=== PATIENT | male | born 1960 | race Caucasian/White ===

== ENCOUNTER 2016-10-19 15:46 | Inpatient (IN) | payer OTHER ==
[~2016-10-19] VITALS: Ht 198.1 cm; Wt 141.0 kg
--- NOTE | ~2016-10-19 | OR ---
PATIENT'S NAME: DENNY ZIEGLER [facility] AGE: 56 Y [address] ROOM: [place] [address] LOCATION: GPCU ADMIT DATE: 10/19/2016 OR/Procedure Report DISCHARGE DATE: 10/21/2016 FAMILY PHYSICIAN: PHYSICIAN, NO ATTENDING PHYSICIAN: Gaurav Gandhi SURGEON: Woody Lopez DO FLOOR TRADER: DATE OF PROCEDURE: 10/21/2016 PREOPERATIVE DIAGNOSIS: Dual-chamber pacemaker generator at approximately 40 days past ROWENA. POSTOPERATIVE DIAGNOSIS: Dual-chamber pacemaker generator at approximately 40 days past ROWENA. PROCEDURE: Removal and exchange of dual-chamber pacemaker generator. BRIEF HISTORY: Mr. Ziegler is a 56-year-old white male, who in 2006 had his dual-chamber pacemaker placed. Unfortunately, he has not been quite compliant with his followup and presented to the hospital with near syncopal episodes and questionable ventricular tachycardia. His pacemaker was interrogated and found to be approximately 40 days past its ROWENA point. He has been brought to the operative suite today for replacement of his generator. Informed consent has been obtained. His previous incision was marked with surgical marker and then sterilely prepped and draped in the usual fashion. After appropriate IV sedation was achieved, 1% lidocaine was used to infiltrate the incision. The incision was then opened. Leads and generator were removed from the pocket. The old generator which was a Medtronic model ADDR01, serial #[id number], was removed and the new generator which is the [employer] ESSENTIO MRI, model L111, serial #[id number], was connected to the leads without difficulty. The leads were interrogated and found to be in excellent condition, and he was paced DDDR with a lower rate limit of 60, upper maximal tracking rate of 130. The incision was then closed in a layered fashion with 2-0 Vicryl and 4-0 Monocryl. He tolerated the procedure well and was transferred to the recovery area in stable condition. DO DENISE MOFFETT/yuril /[id number] d: 10/21/162008 t: 10/22/16 1044, OPERATIVE SUMMARY
--- NOTE | ~2016-10-19 | HP ---
PATIENT'S NAME: [facility] AGE: 56 Y [address] ROOM: [place] [address] LOCATION: GPCU ADMIT DATE: 10/19/2016 History & Physical DISCHARGE DATE: 10/21/2016 FAMILY PHYSICIAN: PHYSICIAN, NO ATTENDING PHYSICIAN: Gaurav Gandhi DATE OF SERVICE: CHIEF COMPLAINT: Syncopal episode. HISTORY OF PRESENT ILLNESS: A 56-year-old gentleman with no other significant past medical history, had a permanent pacemaker placed 10 years ago. Had multiple episodes of lightheadedness and presyncope without any associated aura, changes in the vision, or headache. He denied of any chest pain, any shortness of breath, any headache, any trouble with the eyes, any abdominal pain, any constipation, any diarrhea, or any leg swelling. He denied any orthopnea or PND as well. REVIEW OF SYSTEMS: All other systems reviewed and were negative except what is mentioned in the HPI. PAST MEDICAL HISTORY: Status post permanent pacemaker. PERSONAL HISTORY: Never a smoker. No alcohol or drug abuse. FAMILY HISTORY: Significant for coronary artery disease in father. MEDICATIONS: Please see MAR. PHYSICAL EXAMINATION: VITAL SIGNS: Vitals in the emergency department were blood pressure 132/64, pulse rate 72, temperature afebrile, respiratory rate 16. HEAD: Atraumatic, normocephalic. EYES: Nonicteric. No pallor. Oropharynx: Dry mucous membranes. CARDIOVASCULAR: S1 and S2. No murmur or gallops or rubs. RESPIRATORY: Clear to auscultation bilaterally. ABDOMEN: Soft, nontender, nondistended. Bowel sounds present. EXTREMITIES: No clubbing, cyanosis, or edema. PATIENT'S NAME: [facility] AGE: 56 Y [address] ROOM: [address] [address] LOCATION: GPCU ADMIT DATE: 10/19/2016 History & Physical DISCHARGE DATE: 10/21/2016 FAMILY PHYSICIAN: PHYSICIAN, NO ATTENDING PHYSICIAN: Gaurav Gandhi NEUROLOGIC: Cranial nerves II through XII intact. No motor or sensory deficit. SKIN: Warm and dry. LABORATORY DATA: Lab on the admission were sodium 143, potassium 4.6, chloride 107, bicarb of 28, glucose 117, BUN of 12, creatinine 1. ASSESSMENT: Presyncope/lightheadedness. PLAN: We are going to obtain a CT of the head. We are going to perform pacemaker interrogation to see if there are any arrhythmias. We will make a Cardiology consultation. Further plan will depend on the patient's course in the hospital. MD DA ACOSTA/ashlee /[id number] D: T: [id number] HISTORY & PHYSICAL
--- NOTE | ~2016-10-19 | ER ---
PATIENT'S NAME: DIX [facility] AGE: 56 Y [address] ROOM: [place] [address] LOCATION: [facility] ADMIT DATE: 10/19/2016 ER/Outpatient Report DISCHARGE DATE: FAMILY PHYSICIAN: PHYSICIAN, NO ATTENDING PHYSICIAN: Viral Epps HISTORY OF PRESENT ILLNESS: This patient is a 56-year-old male, who presented to the Emergency Room with lightheadedness and episodes where he just did not feel very well. He initially saw Dr. Epps. See Dr. Epps's dictation in regard to the chief complaint, history of the present illness, past medical history, physical examination, laboratory, x- rays, and EKG studies. LABORATORY DATA AND DIAGNOSTIC STUDIES: All of his lab was normal. His EKG was normal. His chest x-ray was normal. He did have a run of ventricular tachycardia that was not caught on the monitor here in the Emergency Department. RECOMMENDATIONS: We did plan to interrogate his pacemaker, but the pacemaker machine set up technician is in [place], and will be back early tomorrow morning. We will go ahead and admit the patient to the hospital for monitoring and observation and treatment as needed. We will interrogate the pacemaker tomorrow morning. I did discuss this with the patient, and he understands. Discussed the patient with Dr. Fabian, the hospitalist, who will admit the patient to the hospital. IMPRESSION: 1. Transient run of ventricular tachycardia. History of intermittent lightheadedness over the past few days and not feeling well. 2. Hypertension. 3. Dyslipidemia. PLAN: The patient will be admitted to the hospital for further evaluation and treatment, monitoring, and interrogation of pacemaker. PATIENT'S NAME: DIXDENNY [facility] AGE: 56 Y [address] ROOM: [place] [address] LOCATION: [facility] ADMIT DATE: 10/19/2016 ER/Outpatient Report DISCHARGE DATE: FAMILY PHYSICIAN: PHYSICIAN, NO ATTENDING PHYSICIAN: Viral Epps MD TREV MCGRAW/modl /[id number] d: 10/19/16 2352 t: 10/20/16 1825, OUTPATIENT REPORT
--- NOTE | ~2016-10-19 | DS ---
PATIENT'S NAME: DENNY ZIEGLER [facility] AGE: 56 Y [address] ROOM: [place] [address] LOCATION: GPCU ADMIT DATE: 10/19/2016 Discharge Summary DISCHARGE DATE: 10/21/2016 FAMILY PHYSICIAN: PHYSICIAN, NO ATTENDING PHYSICIAN: Gaurav Gandhi PRINCIPAL DIAGNOSIS: Syncope. SECONDARY DIAGNOSES: 1. Sick sinus syndrome status post pacemaker. End of battery life status post generator exchange on 10/21/2016 on the day of discharge. 2. Morbid obesity. 3. Hypertension. HOSPITAL COURSE: A 56-year-old gentleman with a past medical history of hypertension, sick sinus syndrome status post pacemaker; who was admitted to the hospital due to recurrent syncopes. A CAT scan in the hospital was done which was negative. EKG was done, which was normal sinus rhythm without any acute changes. Pacer interrogation was done which actually showed end of life of pacer battery. Cardiothoracic Surgery consultation was obtained. The patient was taken to the OR for generator exchange which was done on 10/21/2016 and went uneventfully. Cardiology was also involved and approved of his discharge today. DISCHARGE MEDICATION: Include: 1. Metoprolol 50 mg p.o. every night at bedtime. 2. Pravastatin 20 mg p.o. every night. 3. [place] 5/325 p.o. q.6 hours for pain, 1-week supply. ACTIVITY: No heavy lifting on the left side. HEMODYNAMICS ON DISCHARGE: Stable. FOLLOWUP: Followup with Cardiology. MD AD ACOSTA/ashlee /[id number] d: 10/22/1608 t: 10/23/16 1526, DISCHARGE SUMMARY
--- NOTE | ~2016-10-19 | ER ---
PATIENT'S NAME: DENNY ZIEGLER [facility] AGE: 56 Y [address] ROOM: [place] [address] LOCATION: GPCU ADMIT DATE: 10/19/2016 ER/Outpatient Report DISCHARGE DATE: FAMILY PHYSICIAN: PHYSICIAN, NO ATTENDING PHYSICIAN: KAMERON CLAYTON TIME OF ARRIVAL: 15:46. TIME OF EVALUATION: 16:55. CHIEF COMPLAINT: The patient is a 56-year-old male, who presented to the Emergency Department today with a chief complaint of feeling like he is going to pass out. HISTORY OF PRESENT ILLNESS: The patient is a 56-year-old male, who presented to the Emergency Department today with a chief complaint of near syncope. He reports that it started two days prior to arrival. He has had episodes where he feels like he is going to pass out. He has never actually passed out. He denies any pain, 0/10 in severity at this time. He denies any chest pain. No shortness of breath. No cough. No nausea or vomiting. He does report that he had some abdominal pain yesterday, but has not had any since. He denies any fevers. He does report that he had two episodes of diarrhea or loose stool. He denies any other associated symptoms at this time. PAST MEDICAL HISTORY: 1. Dyslipidemia. 2. Hypertension. 3. Bradycardia with episodes of near syncope in the past. PAST SURGICAL HISTORY: Pacemaker. SOCIAL HISTORY: The patient denies any tobacco, alcohol, or illicit drug use. ALLERGIES: NO KNOWN DRUG ALLERGIES. MEDICATIONS: Please see list. PATIENT'S NAME: DENNY ZIEGLER [facility] AGE: 56 Y [address] ROOM: [address] [address] LOCATION: GPCU ADMIT DATE: 10/19/2016 ER/Outpatient Report DISCHARGE DATE: FAMILY PHYSICIAN: PHYSICIAN, NO ATTENDING PHYSICIAN: KAMERON CLAYTON PRIMARY CARE DOCTOR: None. He used to see Nayan Hackett MD prior to [facility]. He has not seen one since. RESAW TAILER: [facility]. REVIEW OF SYSTEMS: All systems were reviewed by myself and are negative with the exception of those discussed in history of present illness and past medical history. PHYSICAL EXAMINATION: VITAL SIGNS: Weight is 141 kg. Blood pressure was 146/99, pulse was 94, respiratory rate was 16, temperature was 98.0, and oxygen saturation was 96% on room air. GENERAL: The patient is a 56-year-old male, who appears stated age. Well developed and well nourished, in no acute distress. HEENT: Head: Normocephalic and atraumatic. Eyes: Pupils were equal, round, and reactive to light. Mucous membranes are moist. NECK: Supple. There is no nuchal rigidity. No jugular venous distention. CARDIOVASCULAR: Regular rate and rhythm. No murmurs, rubs, or gallops. LUNGS: Clear to auscultation bilaterally. No wheezes, rales, or rhonchi. ABDOMEN: Soft, nontender, and nondistended. No rebound, rigidity, or guarding. MUSCULOSKELETAL: The patient moves all four extremities with 5/5 muscle strength. SKIN: Warm and dry. There are no rashes or lesions noted. LABORATORY DATA AND DIAGNOSTIC STUDIES: Labs and x-rays are obtained. EKG is obtained, and is interpreted by myself. It showed sinus rhythm with a rate of 87. Normal axis. Normal interval. No ST elevation or ST depression or T-wave inversions. Complete blood count is normal. Comprehensive metabolic panel is normal. Liver function test is normal. Cardiac enzymes are normal. Coags are normal. PATIENT'S NAME: DENNY ZIEGLER [facility] AGE: 56 Y [address] ROOM: [place] [address] [facility] ADMIT DATE: 10/19/2016 ER/Outpatient Report DISCHARGE DATE: FAMILY PHYSICIAN: PHYSICIAN, NO ATTENDING PHYSICIAN: KAMERON CLAYTON ProBNP is normal. Magnesium is normal. D-dimer is less than 0.19. Chest x-ray shows no acute process as interpreted by myself. IMPRESSION: 1. Near syncope. 2. Questionable non-sustained ventricular tachycardia. 3. Initial visit. EMERGENCY DEPARTMENT COURSE: The patient was brought back to the Examination Room. Seen and evaluated by myself. Upon arrival back to the room, the patient did have an episode of near syncope. The nurse does report that he had a 12-beat run of ventricular tachycardia on the monitor when he had this episode of near syncope. However, this was not captured on the monitor, and was not visualized by myself. The patient was placed on the pads for potential defibrillation as needed. Laboratory analysis and imaging are obtained as described above. EKG is unremarkable. Laboratory analysis is unremarkable. I have discussed results with the patient. We are attempting to get the patient's pacemaker interrogated. I have discussed the results with Dr. Dubose at the shift change. He will follow up on the pacemaker interrogation. Please see his dictation. DISPOSITION: Per Dr. Dubose. SUMEET GUNN DO KJDeena/modl /[id number] d: 10/20/16701 t: 10/21/16 0755, OUTPATIENT REPORT
--- NOTE | ~2016-10-19 | ECHO ---
Transthoracic Echocardiography Report (TTE) Demographics Patient Name DENNY ZIEGLER Date of Study 10/20/2016 Patient Number [id number] Visit Number [id number] Date of 1960 Room Number G6314 Accession Number [id number] Gender Male Age 56 year(s) Referring Hiram Humphrey Civil Engineer [facility] Physician MD Darci Ramos Physician Interpreting Aranza Christianson Box Car Checker Physician Supervising Ordering Physician Darci Hebert APRN, MD/MLP Nurse Stress Guest Specialist Conclusions Contractility Score Summary Normal Left Ventricular contractility was noted. Summary Technically difficult exam. The estimated left ventricular ejection fraction is 60%. Mild concentric left ventricular hypertrophy. No significant valvular abnormalities. Mildly dilated right ventricle. Device lead noted in the right atrium and ventricle. Procedure Type of Study TTE procedure:2D Echocardiogram, M-Mode, Doppler , Color Doppler. Procedure Date Date: 10/20/2016 Start: 10:43 AM Study Location: Inpatient Portable Technical Quality: Fair due to body habitus. Indications:Lightheaded and Dizziness. Appropriate Use Criteria: 9 Patient Status: Routine HR: 75 bpm BP: 135/80 mmHg M-Mode/2D Measurements LV Diastolic Dimension: 4.36 cm LV Systolic Dimension: 2.86 cm LV Septum Diastolic: 1.2 cm LV PW Diastolic: 1.23 cm AO Root Dimension: 2.9 cm Cardiac Output: 3.27 l/min LA Dimension: 3.7 cm LVOT: 1.9 cm LVOT VTI: 15.4 cm RV Base: 3.66 cm LV Stroke volume: 43.64 ml RV Length: 7.02 cm TAPSE: 2.31 cm TDI-S': 17.3 cm/s Doppler Measurements AV Peak Velocity: 1.16 m/s MV Peak E-Wave: 0.68 m/s AV Peak Gradient: 5.38 mmHg MV Peak A-Wave: 0.56 m/s AV Mean Gradient: 3 mmHg MV E/A Ratio: 1.21 LVOT Peak Velocity: 0.94 m/s MV P1/2t: 56 msec PV Peak Velocity: 0.85 m/s E' Septal Velocity: 0.13 m/s PV Peak Gradient: 2.88 mmHg E' Lateral Velocity: 0.12 m/s A' Septal Velocity: 0.1 m/s A' Lateral Velocity: 0.11 m/s Findings Left Ventricle The left ventricle is normal in size . Mild concentric left ventricular hypertrophy. Diastolic assessment reveals normal relaxation. Right Ventricle Mildly dilated right ventricle. Normal right ventricular function. Device lead noted in the right ventricle. Left Atrium Normal left atrial size. Right Atrium Normal right atrial size. Unable to visualize IVC due to poor subcostal window. Device lead seen in the right atrium. Mitral Valve Normal mitral valve structure and function. Trivial mitral regurgitation by color Doppler. Aortic Valve Normal aortic valve structure and function. There is no aortic regurgitation by color Doppler. Tricuspid Valve Normal tricuspid valve structure and function. No tricuspid regurgitation by color Doppler. Pulmonic Valve The pulmonic valve is not well visualized. Pericardial Effusion No evidence of pericardial effusion. Miscellaneous Visualized portions of the aortic root and ascending aorta appear normal in size. Pleural Effusion No evidence of pleural effusion. Contractility Score LV regional wall motion:(0-Non visualized 1-Normal 2-Hypokinesis 3-Akinesis 4-Dyskinesis 5-Aneurysm) Signature dtt: TRAY GOODEN dtd: 10/20/16 1043 Physician Self Edit
--- NOTE | ~2016-10-19 | CON ---
PATIENT'S NAME: DENNY ZIEGLER [facility] AGE: 56 Y [address] ROOM: [place] [address] LOCATION: GPCU ADMIT DATE: 10/19/2016 Consultation DISCHARGE DATE: FAMILY PHYSICIAN: PHYSICIAN, TIKI ATTENDING PHYSICIAN: GAURAV CLAYTON REFERRING PHYSICIAN: TRAY GOODEN MD REFERRING PHYSICIAN: Gaurav Clayton MD REASON FOR CONSULT: Presyncopal episodes. HISTORY OF PRESENT ILLNESS: Mr. Ziegler is a pleasant, 56-year-old male with a history of permanent pacemaker placement about 10 years ago. The patient stated that 2 days ago, he developed diarrhea and had 3 loose, watery stools. He also felt lightheaded. He initially had 2 brief episodes on Thursday; however, his symptoms worsened on Thursday, and he had 7 to 8 episodes of brief dizziness and lightheadedness. He denied any syncope. He denied any loss of consciousness. No palpitations. No history of chest pain. No history of increasing shortness of breath. He was evaluated in the emergency room. According to the ER note, the patient probably had a brief episode of nonsustained VT; however, it was not recorded, and hence, he was admitted for further management. REVIEW OF SYSTEMS: The patient denied any recent change in vision. No history of nausea or vomiting. History of diarrhea is present. No history of constipation. No history of fever. No history of cough or expectoration. No history of chest pain or palpitations. Review of other systems is essentially negative. PAST MEDICAL HISTORY: The patient is status post pacemaker placement. PERSONAL HISTORY: Nonsmoker, nonalcoholic. FAMILY HISTORY: His father had ME in his 60s, and his mother in her 90s with cancer. SOCIAL HISTORY: The patient is and lives with his . PHYSICAL EXAMINATION: GENERAL: He is awake, alert, and oriented. PATIENT'S NAME: DENNY ZIEGLER [facility] AGE: 56 Y [address] ROOM: [place] [address] LOCATION: GPCU ADMIT DATE: 10/19/2016 Consultation DISCHARGE DATE: FAMILY PHYSICIAN: PHYSICIAN, NO ATTENDING PHYSICIAN: GAURAV CLAYTON VITAL SIGNS: His blood pressure is 112/64, pulse rate 78, temperature 98.1, and respiratory rate 16. HEENT: His head is atraumatic and normocephalic. Pupils are bilaterally equal. Tongue is moist. NECK: No significant cervical lymphadenopathy is present. No significant jugular venous distention is present. CARDIOVASCULAR: S1 and S2 are audible, they are regular in rate and rhythm. There is no audible murmur or rub. RESPIRATORY: Bilateral vesicular breath sounds are audible with no adventitious sounds. ABDOMEN: Soft and nontender. No palpable organomegaly is present. Bowel sounds are present. EXTREMITIES: No significant pedal edema. NEUROLOGIC: The patient is awake, alert, and oriented. No focal neurological deficits noted. SKIN: Warm and dry. LABORATORY DATA: Sodium 143, potassium 4.6, chloride 107, CO2 of 28, glucose 117, BUN 12, and creatinine 1. Magnesium 2.3. CPK 71, CK-MB 1.1, and troponin less than 0.04. ProBNP 103. White blood cell count 7.7, hemoglobin 14.9, and platelet count 189. ASSESSMENT: 1. Presyncope/lightheadedness. 2. Status post permanent pacemaker placement. PLAN: We will continue to monitor the patient on telemetry. We will check orthostatics. We will obtain 2D echocardiogram to evaluate left ventricular function. We will get pacemaker interrogation. We will make further recommendations depending on the test results. Thank you for allowing us in taking part in the care of this pleasant patient. MD STEPHANIE AGUILAR/modl /[id number] d: 10/20/16 1351 t: 10/20/16 1425, CONSULTATION REPORT
[2016-10-19 17:33] LABS: BASOPHIL # 0.1 K/uL (0.0-0.2); BASOPHIL % 0.7 %; EOSINOPHIL % 0.2 %; HEMATOCRIT 50.5 % (37.0-53.0); HEMOGLOBIN 16.7 g/dL (12.0-17.0); IMMATURE GRANULOCYTE # 0.1 K/uL (0.0-0.3); IMMATURE GRANULOCYTE % 0.6 %; LYMPHOCYTE # 1.5 K/uL (0.8-4.0); LYMPHOCYTE % 16.9 %; MCH 32.2 pg (27.0-34.0); MCHC 33.1 gm/dL (32.0-36.5); MCV 97.3 fl (83.0-98.0); MONOCYTE # 0.5 K/uL (0.0-1.0); MONOCYTE % 5.7 %; MPV 10.4 fl (9.4-12.4); NEUTROPHIL # (ANC) 6.7 K/uL (1.4-9.0); NEUTROPHIL % 75.9 %; NRBC % 0 /100WBC (0-0.00); PLATELET COUNT 226 K/uL (150-450); RBC 5.19 M/uL (4.00-6.00); WBC 8.8 K/uL (4.0-11.0)
[2016-10-19 17:38] LABS: PROTIME 10.4 SECONDS (9.6-11.1); PTT 26 SECONDS (25-32)
[2016-10-19 17:49] LABS: ALBUMIN 4.2 gm/dL (3.5-5.0); ALK PHOS 85 IU/L (33-138); ALT 54 IU/L (12-78); ANION GAP 12.1 (10.0-19.0); AST 19 IU/L (10-40); BLOOD UREA NITROGEN 14 mg/dL (6-24); CALCIUM 8.8 mg/dL (8.5-10.5); CHLORIDE 106 mMol/L (96-110); CO2 26 mMol/L (22-32); CPK 84 IU/L (35-332); ESTIMATED GFR (MDRD EQUATION) > 60; MAGNESIUM 2.3 mg/dL (1.3-2.6); POTASSIUM 4.1 mMol/L (3.7-5.1); SODIUM 140 mMol/L (135-145); TOTAL BILIRUBIN 0.6 mg/dL (0.0-1.5); TOTAL PROTEIN 7.5 g/dL (6.0-8.4)
[2016-10-19 19:40] LABS: CPK 71 IU/L (35-332)
[2016-10-19] MEDS ORDERED: TOPROL XL 5050 MG PO (23:33)
[2016-10-19] MEDS ORDERED: PRAVACHOL20 MG PO (23:35)
--- NOTE | 2016-10-20 02:52 | NUR ---
ADMITTED FROM HOME WITH PRE-SYNCOPAL EPISODES. HE HAS BEEN DEALING WITH THESE "SPELLS" FOR ABOUT 2 DAYS. WAS NOT ABLE TO INTERROGATE HIS PACER SINCE THE PACEMAKER REP WAS IN [place]. IN ER, IT WAS THOUGHT THAT HE WAS HAVING RUNS OF V-TACH, BUT THE MONITOR WAS NOT HOOKED UP AT THE TIME. PT IS A&O X3. REMAINS WITH PATIENT.
[2016-10-20 05:06] LABS: BASOPHIL % 0.5 %; EOSINOPHIL # 0.1 K/uL (0.0-0.5); EOSINOPHIL % 1.4 %; HEMATOCRIT 45.4 % (37.0-53.0); HEMOGLOBIN 14.9 g/dL (12.0-17.0); IMMATURE GRANULOCYTE % 0.4 %; LYMPHOCYTE # 2.6 K/uL (0.8-4.0); LYMPHOCYTE % 33.7 %; MCH 31.8 pg (27.0-34.0); MCHC 32.8 gm/dL (32.0-36.5); MCV 96.8 fl (83.0-98.0); MONOCYTE # 0.7 K/uL (0.0-1.0); MONOCYTE % 8.9 %; MPV 10.4 fl (9.4-12.4); NEUTROPHIL # (ANC) 4.2 K/uL (1.4-9.0); NEUTROPHIL % 55.1 %; NRBC % 0 /100WBC (0-0.00); PLATELET COUNT 189 K/uL (150-450); RBC 4.69 M/uL (4.00-6.00); RDW-CV 12.1 % (11.9-14.6); WBC 7.7 K/uL (4.0-11.0)
[2016-10-20 05:29] LABS: ALBUMIN 3.5 gm/dL (3.5-5.0); ALK PHOS 70 IU/L (33-138); ALT 42 IU/L (12-78); ANION GAP 11.6 (10.0-19.0); AST 17 IU/L (10-40); BLOOD UREA NITROGEN 12 mg/dL (6-24); CALCIUM 8.6 mg/dL (8.5-10.5); CHLORIDE 107 mMol/L (96-110); CO2 28 mMol/L (22-32); ESTIMATED GFR (MDRD EQUATION) > 60; POTASSIUM 3.6 mMol/L (3.7-5.1); SODIUM 143 mMol/L (135-145); TOTAL BILIRUBIN 0.6 mg/dL (0.0-1.5); TOTAL PROTEIN 6.5 g/dL (6.0-8.4)
--- NOTE | 2016-10-20 05:29 | NUR ---
Significant Event: ADMIT TO PCU AT 2255 FOR POSSIBLE NON-SUSTAINED V-TACH CAUSING PRE-SYNCOPAL EPISODES. HE HAS HAD NO EPISODES SINCE BEING ADMITTED TO PCU. HIS HEART MONITOR DOES CONTINUE TO ALEJANDRO DOWN IN THE 40s. HE HAS A PACER THAT IS NOT 1:1 PACED. HE IS UNDERLYING NSR. VSS. PACEMAKER WAS UNABLE TO BE INTERROGATED LAST NIGHT DUE TO PACEMAKER REP UNAVAILABLE. TO BE INTERROGATED TODAY. HAS REMAINED AT BEDSIDE ALL NIGHT. Follow up: NPO UNTIL CARDIO SEES.
--- NOTE | 2016-10-20 11:54 | NUR ---
Introduced self and CM role to Junito and his who was at bedside. Junito lives in [place], [place] with , plan is to return there when he is medically cleared to do so. will transport him when ready. He does his own medications at home and will continue to do so. He denies any DME/HHC needs when he leaves here. No other questions, needs or concerns. CM to continue to follow and assist. Plan home.
--- NOTE | 2016-10-20 16:19 | NUR ---
Significant Event: VSS. A/O X3. OKAY TO GET UP WITH ASSISTANCE. PIV SL'D. ORTHOSTATIC BPs NEGATIVE. PLAN FOR PACEMAKER GENERATOR EXCHANGE TOMORROW AM WITH DR. NEVAREZ. NPO AFTER MIDNIGHT. Follow up:
--- NOTE | 2016-10-21 05:00 | NUR ---
Significant Event: Patient alert and oriented x3. SBP 130s-140s. HR 80s-90. All other vital signs stable. On RA. Up with stand-by assist to bathroom. PIV SL'd. NPO since midnight. No complaints of pain, dizziness, lightheadedness, or feelings of faint this shift. Patient calm and cooperative with all cares. at bedside. Follow up: Pacemaker Generator Exchange this morning.
[2016-10-21] MEDS ORDERED: NORCO 5-325 TA1 EACH PO (09:42)
--- NOTE | 2016-10-21 13:27 | NUR ---
DISCHARGE: A/O X3. UP AD EMILIA. LEFT CHEST INCISION COVERED WITH GAUZE & TEGADERM, D/I. VSS. DENIES PAIN. ICE PACK KEPT TO LEFT SUBCLAV. PIV DC'D. DISCHARGE INSTRUCTIONS GIVEN. NO FURTHER QUESTIONS. TAKEN TO MAIN ENTRANCE BY WHEELCHAIR BY RN @[id number]. UPON RETURNING TO PCU, PATIENT WAS WAITING OUTSIDE OF 21. HE SAID THAT NO ONE HAD GIVEN HIM HIS BOX FOR THE NEW PACEMAKER GENERATOR. BENITA TBUBS CALLED. BOX WAS LOCATED IN [employer]CH[employer]PERATIONS OFFICER. [employer]PERATIONS OFFICER RN BROUGHT BOX TO PATIENT. PATIENT DC'D HOME.
== END 2016-10-21 12:40 | disposition disaster alternative care site (69) | DRG 259 ==
LOC: GMED 15:46 → GPCU 22:42
PROVIDERS: Emergency Medicine; ADMIT Family Medicine
PROC: B246ZZZ Ultrasonography of Right and Left Heart (ICD-10-PCS; principal; 2016-10-20)
PROC: 0JPT0PZ Removal of Cardiac Rhythm Related Device from Trunk Subcutaneous Tissue and Fascia, Open Approach (ICD-10-PCS; 2016-10-21)
PROC: 0JH606Z Insertion of Pacemaker, Dual Chamber into Chest Subcutaneous Tissue and Fascia, Open Approach (ICD-10-PCS; 2016-10-21)
DX: R55 Syncope and collapse (principal); I49.5 Sick sinus syndrome; E66.01 Morbid (severe) obesity due to excess calories; I48.2 Chronic atrial fibrillation; E78.5 Hyperlipidemia, unspecified; I10 Essential (primary) hypertension; Z68.35 Body mass index [BMI] 35.0-35.9, adult
CPT/HCPCS: C1785; J0690; J2250; J7030

== ENCOUNTER 2017-01-11 16:34 | Inpatient (IN) | payer OTHER ==
[~2017-01-11] VITALS: Ht 198.1 cm; Wt 135.4 kg
--- NOTE | ~2017-01-11 | ER ---
PATIENT'S NAME: [place] [facility] AGE: 56 Y [address] ROOM: [place] [address] [place] [facility] [place]: 01/11/2017 ER/Outpatient Report DISCHARGE DATE: FAMILY PHYSICIAN: PHYSICIAN, NO ATTENDING PHYSICIAN: Ti NIEVES TIME SEEN: The patient is seen at about 1700 hours. CHIEF COMPLAINT: Left lower quadrant pain. HISTORY OF PRESENT ILLNESS: The patient is a 56-year-old male who presents with left lower quadrant pain which started about 4 days ago. The pain has intensified over the last 24 hours. Denies fever, chills, or vomiting. The patient states his last normal bowel movement was this morning. The patient has had a previous colonoscopy within the last couple of years. ALLERGIES: NONE. CURRENT MEDICATIONS: 1. Tylenol. 2. Metoprolol. 3. Pravastatin. MEDICAL HISTORY: Hypertension. SURGERIES: Pacemaker placement for bradyarrhythmias. SOCIAL HISTORY: Denies tobacco or alcohol use. REVIEW OF SYSTEMS: GENERAL: No fever or chills. HEAD AND EENT: Denies any recent headache or sore throat. RESPIRATORY: No cough or shortness of breath. GASTROINTESTINAL: Left lower quadrant pain started 4 days ago. No vomiting. No diarrhea. No presence of blood in the stool. GENITOURINARY: Pain does radiate down to his groin somewhat. No dysuria. PHYSICAL EXAMINATION: PATIENT'S NAME: DENNY ZIEGLER [facility] AGE: 56 Y [address] ROOM: [place] [address] [place] [facility] [place]: 01/11/2017 ER/Outpatient Report DISCHARGE DATE: FAMILY PHYSICIAN: PHYSICIAN, NO ATTENDING PHYSICIAN: Ti NIEVES VITAL SIGNS: Blood pressure 148/84, his temperature 98, respiratory rate 16, pulse 90, and O2 saturations 96%. GENERAL APPEARANCE: White male. He is alert, cooperative. HEAD AND EENT: Face was flushed. Pupils were equal and reactive. Sclerae were clear. Buccal membranes were moist. LUNGS: Peripherally were clear bilaterally. HEART: Tones distant and regular. ABDOMEN: Somewhat obese with very tender left lower quadrant pain with guarding. Bowel sounds were hypoactive. EXTREMITIES: No clubbing, no cyanosis. LAB WORK: Urine was yellow, clear, did have a trace of white cells. Micro showed negative bacteria, negative red cells. CBC: White count 83712, hemoglobin 15.6, and his ANC was 8.3. CMS and liver function tests were normal. Electrolytes were normal. Lipase was 107. CT abdomen, IV contrast: Radiology reported a perforated diverticula without abscess. ASSESSMENT: 1. Acute abdomen with a perforated diverticula, with no presence of abscess. 2. Hypertension. 3. Implanted pacemaker. PLAN: The patient was referred to Dr. Nieves, the general surgeon network operations technician for the emergency room. IV was established here in the emergency room. Please refer to his orders. TAMIKO ROWAN FOR MD GENNA CROFT/yuril /[id number] d: 01/11/172005 t: 01/19/17 1209, OUTPATIENT REPORT
--- NOTE | ~2017-01-11 | HP ---
PATIENT'S NAME: DENNY ZIEGLER [facility] AGE: 56 Y [address] ROOM: [place] [address] LOCATION: [facility] [place] ADMIT DATE: 01/11/2017 History & Physical DISCHARGE DATE: FAMILY PHYSICIAN: PHYSICIAN, NO ATTENDING PHYSICIAN: Ti NIEVES DATE OF SERVICE: HISTORY: The patient is a 56-year-old male who presents with a 4-day history of lower abdominal pain, nausea, vomiting, and diarrhea. He has not had this pain before. Because of the persistent pain, he presents to the ED today. His evaluation in the ED included a CAT scan with IV contrast showed evidence of diverticular disease with evidence of a small perforation. No abscess formation. I was therefore asked to see the patient. PAST MEDICAL HISTORY: Significant only for arrhythmias that resulted him passing out. He consequently has a pacemaker that recently had changed this year but has had the pacemaker for total approximately 10 years. PAST SURGICAL HISTORY: Only for the pacemaker. FAMILY AND SOCIAL HISTORY: He drinks socially. REVIEW OF SYSTEMS: Noncontributory. PHYSICAL EXAMINATION: GENERAL: He is awake, alert, and oriented x3. LUNGS: Clear. HEART: Regular rate and rhythm. ABDOMEN: Soft with more abdominal tenderness that extends more to the left side. There is mild guarding but no rebound. EXTREMITIES: Warm. Pulses are intact. NEURO: Sensory and motor are intact. LABORATORY DATA: His laboratory values revealed a white blood cell count of 11.0, hemoglobin 15.6, hematocrit 46.3, platelet count of 194,000. Sodium is 138, potassium is 4.2, chloride 105, CO2 of 29, glucose is 95, creatinine is 1.1, BUN is 13. Alk phos, ALT, and AST all within normal limits. Urinalysis is negative for evidence of any urinary tract infection. [facility] 56 Y [address] ROOM: [place] [address] LOCATION: [facility] [place] ADMIT DATE: 01/11/2017 History & Physical DISCHARGE DATE: FAMILY PHYSICIAN: PHYSICIAN, NO ATTENDING PHYSICIAN: Ti NIEVES IMAGING DATA: A CAT scan, the official report is still pending. The verbal report is that the patient has diverticulitis with evidence of a small perforation but no abscess formation. ASSESSMENT: Diverticular disease with contained perforation, no abscess formation. PLAN: Abdominal exam shows localized tenderness and at this point, I do not see a reason for operative intervention. Plan will be to treat him with antibiotics and make the patient n.p.o. for now. We will plan to admit and expectation for his stay will be more than 2 midnights. MD RHYS HILL/ashlee /[id number] D: [id number] T: [id number] HISTORY & PHYSICAL
--- NOTE | ~2017-01-11 | DS ---
PATIENT'S NAME: DENNY ZIEGLER [facility] AGE: 56 Y [address] ROOM: [address] [place] [address] LOCATION: [facility] [place] ADMIT DATE: 01/11/2017 Discharge Summary DISCHARGE DATE: 01/15/2017 FAMILY PHYSICIAN: PHYSICIAN, NO ATTENDING PHYSICIAN: Ti Floyd DIAGNOSIS: Acute diverticulitis with contained perforation. SUMMARY: Denny Ziegler is a 56-year-old male, who presented on January 11 after having a 4-day history of lower abdominal pain, nausea and vomiting along with diarrhea. His evaluation included a CT scan that showed diverticular disease with evidence of a small perforation. No abscess formation was seen. Dr. Floyd, [facility] general surgeon, evaluated the patient and subsequently admitted to the Medical-Surgical Unit. He kept him n.p.o. and started Zosyn and Flagyl. Lovenox was ordered for DVT prophylaxis and morphine for pain. On January 12, the patient was still fairly sore. He was passing some gas, but he was taking Zofran for nausea. T-max was 102.6. White blood cell count was 13.5. Morphine was discontinued due to side effects. Raleigh and fentanyl were ordered for pain control. He was allowed ice chips and sips of water. On January 13, the patient was feeling a little better. He was passing some flatus. He still felt bloated. Temperature was down to 99.8. White blood cell count was 10.0. He was started on clear liquid diet. On January 14, the patient was doing better and tolerating clear liquids. He was afebrile. He was advanced to full liquids and then regular diet as tolerated. IV was saline locked. On January 15, he was tolerating diet. He had a loose bowel movement. He was feeling better overall. His abdomen was soft and nontender. Arrangements were made for the patient to discharge home. DISCHARGE INSTRUCTIONS: Include all cooked diet for 2 weeks. No restrictions on activity. He will follow up with Dr. Peterson in 10 to 14 days. We discussed the need for a colonoscopy in the future once this is all resolved. DISCHARGE MEDICATIONS: Include continuing, 1. Toprol-XL 50 mg p.o. at bedtime. 2. Pravachol 20 mg p.o. at bedtime. Prescriptions were written for, 1. Cipro 500 mg 1 p.o. q.12 hours x10 days. 2. Flagyl 500 mg 1 p.o. q.8 hours x10 days. 3. Raleigh 5/325 one to two p.o. q.4 hours p.r.n. pain, dispensing 10 with no refills. For specifics on day-to-day care, please refer to the hospital chart. PATIENT'S NAME: DENNY ZIEGLER [facility] AGE: 56 Y [address] ROOM: [place] [address] LOCATION: [facility] [place] ADMIT DATE: 01/11/2017 Discharge Summary DISCHARGE DATE: 01/15/2017 FAMILY PHYSICIAN: PHYSICIAN, TIKI ATTENDING PHYSICIAN: Ti Floyd PAPO SKINNER PA-C FOR MD ERIC SMALLWOOD/ashlee /[id number] d: 01/16/17622 t: 01/29/17 1730, DISCHARGE SUMMARY
[~2017-01-11 16:34] MED LIST: NORCO 5-325 TA1 EACH PO; PRAVACHOL20 MG PO; TOPROL XL 5050 MG PO
[2017-01-11 17:06] LABS: BILIRUBIN URINE NEGATIVE (NEGATIVE); BLOOD URINE NEGATIVE /UL (NEGATIVE); COLOR URINE YELLOW (YELLOW); GLUCOSE URINE NEGATIVE (NEGATIVE); KETONE URINE 50 mg/dL (NEGATIVE); LEUKOCYTES URINE 25 /UL (NEGATIVE); NITRITE URINE NEGATIVE (NEGATIVE); PROTEIN URINE 15 mg/dL (NEGATIVE); SPEC GRAVITY URINE 1.015 (1.003-1.035); TURBIDITY URINE CLEAR (CLEAR); UROBILINOGEN URINE 4 mg/dL (NORMAL)
[2017-01-11 17:14] LABS: BASOPHIL % 0.4 %; EOSINOPHIL # 0.1 K/uL (0.0-0.5); EOSINOPHIL % 0.7 %; HEMATOCRIT 46.3 % (37.0-53.0); HEMOGLOBIN 15.6 g/dL (12.0-17.0); IMMATURE GRANULOCYTE % 0.2 %; LYMPHOCYTE # 1.7 K/uL (0.8-4.0); LYMPHOCYTE % 15.1 %; MCH 32.7 pg (27.0-34.0); MCHC 33.7 gm/dL (32.0-36.5); MCV 97.1 fl (83.0-98.0); MONOCYTE # 0.9 K/uL (0.0-1.0); MONOCYTE % 8.2 %; MPV 10.3 fl (9.4-12.4); NEUTROPHIL # (ANC) 8.3 K/uL (1.4-9.0); NEUTROPHIL % 75.4 %; NRBC % 0 /100WBC (0-0.00); PLATELET COUNT 194 K/uL (150-450); RBC 4.77 M/uL (4.00-6.00); RDW-CV 11.9 % (11.9-14.6)
[2017-01-11 17:25] LABS: BACTERIA URINE NEGATIVE (NEGATIVE); EPITHELIAL URINE 0-2 #/HPF (NEGATIVE); MUCUS URINE 2+ (NEGATIVE); RBC URINE NEGATIVE #/HPF (NEGATIVE)
[2017-01-11 17:31] LABS: ALBUMIN 3.4 gm/dL (3.5-5.0); ALK PHOS 83 IU/L (33-138); ALT 37 IU/L (12-78); ANION GAP 8.2 (10.0-19.0); AST 20 IU/L (10-40); BLOOD UREA NITROGEN 13 mg/dL (6-24); CALCIUM 8.8 mg/dL (8.5-10.5); CHLORIDE 105 mMol/L (96-110); CO2 29 mMol/L (22-32); CREATININE 1.1 mg/dL (0.6-1.3); ESTIMATED GFR (MDRD EQUATION) > 60; POTASSIUM 4.2 mMol/L (3.7-5.1); SODIUM 138 mMol/L (135-145); TOTAL BILIRUBIN 0.9 mg/dL (0.0-1.5); TOTAL PROTEIN 7.3 g/dL (6.0-8.4)
[2017-01-12 06:58] LABS: BASOPHIL % 0.1 %; HEMATOCRIT 44.9 % (37.0-53.0); HEMOGLOBIN 15.3 g/dL (12.0-17.0); IMMATURE GRANULOCYTE # 0.1 K/uL (0.0-0.3); IMMATURE GRANULOCYTE % 0.4 %; LYMPHOCYTE # 0.9 K/uL (0.8-4.0); LYMPHOCYTE % 6.8 %; MCH 33.1 pg (27.0-34.0); MCHC 34.1 gm/dL (32.0-36.5); MCV 97.2 fl (83.0-98.0); MONOCYTE # 1.2 K/uL (0.0-1.0); MONOCYTE % 8.7 %; MPV 10.4 fl (9.4-12.4); NEUTROPHIL # (ANC) 11.3 K/uL (1.4-9.0); NRBC % 0 /100WBC (0-0.00); PLATELET COUNT 208 K/uL (150-450); RBC 4.62 M/uL (4.00-6.00); WBC 13.5 K/uL (4.0-11.0)
[2017-01-13 04:32] LABS: BASOPHIL % 0.4 %; EOSINOPHIL % 0.3 %; HEMATOCRIT 41.5 % (37.0-53.0); HEMOGLOBIN 13.9 g/dL (12.0-17.0); IMMATURE GRANULOCYTE % 0.4 %; LYMPHOCYTE # 1.1 K/uL (0.8-4.0); LYMPHOCYTE % 11.2 %; MCH 32.9 pg (27.0-34.0); MCHC 33.5 gm/dL (32.0-36.5); MCV 98.1 fl (83.0-98.0); MONOCYTE # 0.7 K/uL (0.0-1.0); MONOCYTE % 6.9 %; MPV 10.5 fl (9.4-12.4); NEUTROPHIL # (ANC) 8.1 K/uL (1.4-9.0); NEUTROPHIL % 80.8 %; NRBC % 0 /100WBC (0-0.00); PLATELET COUNT 188 K/uL (150-450); RBC 4.23 M/uL (4.00-6.00)
[2017-01-13 04:54] LABS: ALBUMIN 2.7 gm/dL (3.5-5.0); BLOOD UREA NITROGEN 9 mg/dL (6-24); CALCIUM 8.3 mg/dL (8.5-10.5); CHLORIDE 106 mMol/L (96-110); CO2 27 mMol/L (22-32); ESTIMATED GFR (MDRD EQUATION) > 60; SODIUM 137 mMol/L (135-145)
[2017-01-13 04:56] LABS: ANION GAP 8.1 (10.0-19.0); PHOSPHORUS 1.9 mg/dL (2.5-4.9); POTASSIUM 4.1 mMol/L (3.7-5.1)
[2017-01-15 04:19] LABS: BASOPHIL % 0.3 %; EOSINOPHIL # 0.1 K/uL (0.0-0.5); EOSINOPHIL % 1.5 %; HEMATOCRIT 42.3 % (37.0-53.0); HEMOGLOBIN 14.1 g/dL (12.0-17.0); IMMATURE GRANULOCYTE % 0.1 %; LYMPHOCYTE # 1.4 K/uL (0.8-4.0); LYMPHOCYTE % 20.7 %; MCH 32.3 pg (27.0-34.0); MCHC 33.3 gm/dL (32.0-36.5); MCV 96.8 fl (83.0-98.0); MONOCYTE # 0.5 K/uL (0.0-1.0); MONOCYTE % 7.8 %; MPV 10.5 fl (9.4-12.4); NEUTROPHIL # (ANC) 4.7 K/uL (1.4-9.0); NEUTROPHIL % 69.6 %; NRBC % 0 /100WBC (0-0.00); PLATELET COUNT 213 K/uL (150-450); RBC 4.37 M/uL (4.00-6.00); WBC 6.7 K/uL (4.0-11.0)
[2017-01-15] MEDS ORDERED: NORCO 5-325 TA1 EACH PO (14:28)
[2017-01-15] MEDS ORDERED: CIPRO500 MG PO (14:29)
[2017-01-15] MEDS ORDERED: FLAGYL500 MG PO (14:30)
== END 2017-01-15 15:40 | disposition disaster alternative care site (69) | DRG 392 ==
LOC: GMED 16:34 → GMSU 19:23
PROVIDERS: Physician Assistant; Physician Assistant Medical; ADMIT Surgery
DX: K57.80 Diverticulitis of intestine, part unspecified, with perforation and abscess without bleeding (principal); Z95.0 Presence of cardiac pacemaker
CPT/HCPCS: J1650; J2270; J2405; J2543; J3010; J3480; J7050